=== PATIENT | male | born 1975 | race Caucasian/White ===

== ENCOUNTER 2018-07-26 14:44 | Outpatient (CLI) | payer OTHER ==
--- NOTE | 2018-07-28 16:27 | MRI Report ---
Reason: LATERAL EPICONDYLITIS, RIGHT ELBOW Procedure Date: 07/26/2018 Accession Number: [id number] / [id number] Procedure: MRI - Elbow RT W/O CPT Code: FULL RESULT: EXAM: RIGHT ELBOW MRI WITHOUT CONTRAST. EXAM DATE: 07/26/2018 04:03 PM. CLINICAL HISTORY: Lateral epicondylitis, right elbow. COMPARISON: None. TECHNIQUE: Multiplanar, multisequence T1-weighted and fluid-sensitive sequences of the elbow without contrast. Other: None. FINDINGS: Bones: No fractures or subluxations. No marrow edema. No bone lesions. Articular Cartilage: Unremarkable. Ligaments: The ulnar collateral, lateral ulnar collateral, radial collateral, and annular ligaments are intact. Tendons: There is a high-grade partial-thickness tear of the common flexor origin. The common extensor origin appears normal. The finding corresponds with the location of the surface marker. The distal biceps, brachialis, and triceps tendons are unremarkable. Musculature: No edema or fatty atrophy. Other: The cubital tunnel and ulnar nerve are unremarkable. No effusion. The subcutaneous tissues are unremarkable. IMPRESSION: 1. High-grade partial-thickness tear of the common flexor origin. 2. No other significant abnormality. [facility] MUSCULOSKELETAL RADIOLOGY SECTION
== END 2018-07-26 14:45 | disposition home or self-care (01) ==
LOC: DI 14:44
PROVIDERS: ATTEND Anesthesiology Pain Medicine
DX: M77.11 Lateral epicondylitis, right elbow (principal); S56.211A Strain of other flexor muscle, fascia and tendon at forearm level, right arm, initial encounter